=== PATIENT | female | born 1990 | race American Indian/Alaskan Native ===

== ENCOUNTER 2019-05-07 21:16 | Emergency (ER) | payer OTHER ==
--- NOTE | 2019-05-08 00:31 | Emergency Department Report ---
Chief Complaint: Upper Respiratory Infection Stated Complaint: COLD Time Seen by Provider: 05/07/19 23:39 - HPI History of Present Illness: 28-year-old -[place] female presents to the emergency room for three-day history of a cold. Patient reports a cough with mucus, nasal congestion intermittent nausea and left ear pain. Patient reports he tried adck-vbu-exryret Robitussin. Denies any past medical history currently takes no medications on a daily basis and has no known drug allergies. - Exam Physical Exam: General: - Head Head exam: Present: atraumatic, normocephalic - Eye Eye exam: Present: normal appearance, EOMI. Absent: nystagmus - ENT ENT exam: Present: normal exam, normal orophraynx, mucous membranes moist, normal external ear exam, no lymphadenopathy - Neck Neck exam: Present: normal inspection, full ROM. Absent: tenderness, meningismus - Respiratory Respiratory exam: Present: normal lung sounds bilaterally. Absent: respiratory distress, wheezes, rales, rhonchi, stridor, chest wall tenderness, accessory muscle use, decreased breath sounds, prolonged expiratory - Cardiovascular Cardiovascular Exam: Present: regular rate, normal rhythm, normal heart sounds. - GI/Abdominal GI/Abdominal exam: Present: soft, non tender on light and deep palpation. - Extremities Exam Extremities exam: Present: normal inspection, full ROM, - Neurological Exam Neurological exam: Present: alert, oriented X3, normal gait, other (Extraocular movements intact. Tongue midline. No facial droop. - Psychiatric Psychiatric exam: normal affect and mood - Skin MSE screening note: Focused history and physical exam performed. Due to findings the following was ordered: Patient has a cough for 3 days. Examination is within normal limits. No fever. Patient can be referred to a primary care provider or community clinic. Patient can try taking ipuq-fmc-cgshppz cold and cough medications. ED Disposition for MSE Clinical Impression: Acute viral syndrome Disposition: DC- TO HOME OR SELFCARE Is pt being admited?: No Does the pt Need Aspirin: No Condition: Stable Instructions: Viral Syndrome (ED) Additional Instructions: Take zkel-wlb-bnmuali cold and flu medications. You can try taking Zyrtec, Claritin or Jocelyn. Referrals: [facility] [Outside] - 3-5 Days [facility] [Outside] - 3-5 Days Forms: Work/School Release Form(ED)
== END 2019-05-08 01:00 | disposition home or self-care (01) ==
LOC: ED 21:16
DX: B34.9 Viral infection, unspecified (principal)
CPT/HCPCS: 99281